=== PATIENT | female | born 1975 | race African-American/Black ===

== ENCOUNTER 2019-04-08 00:13 | Emergency (ER) | payer MEDICAID ==
[~2019-04-08] VITALS: Ht 162.6 cm; Wt 88.5 kg
--- NOTE | 2019-04-08 00:15 | NUR ---
ED Nurse Note: Pt came from home s/p breast implant on 04/01. 04/08 at 2039 pt expreirenced pain and swelling on LT breast. 07/11 pain. ao4. nad. vss
--- NOTE | 2019-04-08 00:24 | NUR ---
Dr.Robert Bey(plastic surgeon) at bedside.
[2019-04-08] MEDS ORDERED: HYDROmorphone 1mg/ml Carpuject IVP ONE ×3 (00:45→03:30)
--- NOTE | 2019-04-08 00:45 | NUR ---
ED Nurse Note: iv access established. blood collected; sent down to lab.
[2019-04-08 00:59] LABS: BASOPHILS % (AUTO) 0.7 % (0.0-2.0); EOSINOPHILS % (AUTO) 0.6 % (0.0-3.0); HEMATOCRIT 34.9 % (37.0-47.0); HEMOGLOBIN 11.2 G/DL (12.0-16.0); LYMPHOCYTES % (AUTO) 24.6 % (20.0-45.0); MEAN CORPUSCULAR VOLUME 88 FL (80-99); MONOCYTES % (AUTO) 6.3 % (1.0-10.0); NEUTROPHILS % (AUTO) 67.8 % (45.0-75.0); PLATELET COUNT 406 K/UL (150-450); RED BLOOD COUNT 3.94 M/UL (4.20-5.40); RED CELL DISTRIBUTION WIDTH 11.7 % (11.6-14.8); WHITE BLOOD COUNT 11.2 K/UL (4.8-10.8)
[2019-04-08 01:00] VITALS: BP 120/81
--- NOTE | 2019-04-08 01:00 | NUR ---
ED Nurse Note: urine collected; sent down to lab
[2019-04-08 01:14] LABS: ANION GAP 11 mmol/L (5-15); BLOOD UREA NITROGEN 14 mg/dL (7-18); CARBON DIOXIDE 27 MMOL/L (21-32); CHLORIDE 101 MMOL/L (98-107); CREATININE 0.9 MG/DL (0.55-1.30); POTASSIUM 3.7 MMOL/L (3.5-5.1); SODIUM 139 MMOL/L (136-145)
--- NOTE | 2019-04-08 01:36 | NUR ---
Admission cancelled by Dr. Bey, nursing hatch supervisor and registration notified, patient to follow up with Sotero Zambrano in the office in AM.Meanwhile labs are still pending and may be necessary to repeat labs.
[2019-04-08 01:37] LABS: ALANINE AMINOTRANSFERASE 19 U/L (12-78); ALBUMIN 3.8 G/DL (3.4-5.0); ALBUMIN/GLOBULIN RATIO 1.1 (1.0-2.7); ALKALINE PHOSPHATASE 69 U/L (46-116); ASPARTATE AMINO TRANSFERASE 16 U/L (15-37); BILIRUBIN,TOTAL 0.2 MG/DL (0.2-1.0); CKMB 0.5 NG/ML (0.0-3.6); CREATINE KINASE 60 U/L (26-308)
--- NOTE | 2019-04-08 01:55 | Emergency Room Report ---
History of Present Illness General Chief Complaint: Pain Source: Patient Present Illness HPI This is a 43-year-old female with history of high blood pressure. She presents with chief complaint of chest pain. She had recent breast augmentation 10 days ago. She had an argument and was yelling . Right afterwards she developed chest pain. She also has swelling to the left breast area. She text a picture to her plastic surgeon Dr. Bey. He told her to come to the ER evaluation. Pain is 10 out of 10. Radiating to her left arm. No shortness of breath. No exertional component. No diaphoresis. Worse with palpation. Worse with lying flat. Onset was acute after her argument. Pt did say that she has been more active today with using her arms more. No trauma. Allergies: Coded Allergies: No Known Allergies (Unverified , 04/08/19) Patient History Past Medical History: see triage record, old chart reviewed Past Surgical History: other Pertinent Family History: none Social History: Denies: smoking Last Menstrual Period: IUD Now: No Immunizations: other Reviewed Nursing Documentation: PMH: Agreed; PSxH: Agreed Nursing Documentation-PMH Hx Cardiac Problems: Yes Review of Systems Eye: Denies: eye pain, blurred vision ENT: Denies: ear pain, nose congestion, throat swelling Respiratory: Denies: cough, shortness of breath Cardiovascular: Reports: chest pain; Denies: palpitations Gastrointestinal: Denies: abdominal pain, diarrhea, nausea, vomiting Musculoskeletal: Denies: back pain, joint pain Skin: Denies: rash Neurological: Denies: headache, numbness Endocrine: Denies: increased thirst, increased urine Hematologic/Lymphatic: Denies: easy bruising All Other Systems: negative except mentioned in HPI Physical Exam Vital Signs Date Time Temp Pulse Resp B/P (MAP) Pulse Ox O2 Delivery O2 Flow Rate FiO2 04/08/19 00:17 98.2 93 18 120/81 (94) 96 Room Air Vitals normal Sp02 EP Interpretation: reviewed, normal General Appearance: well appearing, no apparent distress, alert Head: normocephalic, atraumatic Eyes: bilateral eye PERRL, bilateral eye EOMI ENT: hearing grossly normal, normal pharynx Neck: full range of motion, supple, no meningismus Respiratory: lungs clear, normal breath sounds, other - Left chest: She has significant hematoma to the chest wall area. Right chest wall is soft. Cardiovascular #1: regular rate, rhythm, no murmur Gastrointestinal: normal bowel sounds, non tender, no mass, no organomegaly, no bruit, non-distended Musculoskeletal: back normal, gait/station normal, normal range of motion Psychiatric: mood/affect normal Medical Decision Making Diagnostic Impression: Primary Impression: Chest pain Qualified Codes: R07.9 - Chest pain, unspecified Additional Impression: Chest wall hematoma Qualified Codes: S20.212A - Contusion of left front wall of thorax, initial encounter ER Course Patient presents with chest pain. Is probably secondary to her acute onset of hematoma. This probably secondary to bleeding blood vessel. This probably occurred after she was slamming the door area no evidence of ACS, PE, dissection. Dr. Bey came to the ER to evaluate the patient. Initially he wants to take her to the OR for evacuation of hematoma. Patient was concerned about the cost and insurance luna. She wanted to do it in the office if possible. He discussed the case with her and myself. He will see her in the office at 630. She will be ruled out with 2 sets of troponin. If negative will discharge her. Pain is better control. EKG Diagnostic Results Rate: normal Rhythm: NSR ST Segments: no acute changes Rhythm Strip Diag. Results EP Interpretation: yes Rate: 83 Rhythm: NSR, no PVC's, no ectopy Chest X-Ray Diagnostic Results Chest X-Ray Diagnostic Results : Chest X-Ray Ordered: Yes # of Views/Limited/Complete: 1 View Indication: Chest Pain EP Interpretation: Yes Interpretation: no consolidation, no effusion, no pneumothorax Impression: No acute disease Electronically Signed by: Leroy Schultz MD Last Vital Signs Date Time Temp Pulse Resp B/P (MAP) Pulse Ox O2 Delivery O2 Flow Rate FiO2 04/08/19 01:08 98.3 04/08/19 01:00 89 18 120/81 96 Room Air Status: improved Disposition: HOME, SELF-CARE Condition: Stable Referrals: NON PHYSICIAN (PCP) Additional Instructions: Follow-up at Dr. Bey's office today at 630 a.m. Return if symptoms worsen. Leroy Schultz MD Apr 08, 2019 01:55
--- NOTE | 2019-04-08 02:32 | NUR ---
ED Nurse Note: pt resting comfortably. pain persists. pt states pain is bearable and does not need pain medication. ao4. nad. vss. pt aware of plan of care. will repeat troponin at 0400
--- NOTE | 2019-04-08 03:30 | NUR ---
ED Nurse Note: patient reports pain is getting unbearable. order received from edmundo. medicated patient. tolerating well. ao4. nad. vss.
[2019-04-08 03:32] VITALS: BP 113/70
--- NOTE | 2019-04-08 04:00 | NUR ---
ED Nurse Note: repeat troponin drawn; sent down to lab.
[2019-04-08 05:26] VITALS: BP 113/70
--- NOTE | 2019-04-08 05:27 | NUR ---
ER DISCHARGE NOTE: Patient is cleared to be discharged per ERMD, pt is aox4, on room air, with stable vital signs. pt was given dc and prescription instructions, pt was able to verbalize understanding, pt id band and iv site removed without complications. pt is able to ambulate with steady gait. pt took all belongings.
--- NOTE | 2019-04-08 11:51 | Diagnostic Imaging Report ---
Indication: Chest pain Technique: One view of the chest Comparison: None Findings: Patient's chin obscures the upper mediastinum. No definite acute infiltrates, effusions, or congestion. The heart size is normal. Impression: No definite acute process
--- NOTE | 2019-04-09 19:15 | Consultation ---
DATE OF CONSULTATION: 04/08/2019 PLASTIC SURGERY CONSULTATION CHIEF COMPLAINT: Left chest pain, status post mastopexy augmentation. HISTORY OF PRESENT ILLNESS: The patient is a 43-year-old female with a past medical history of hypertension that had undergone a mastopexy augmentation procedure 10 days prior. The patient's surgery went well and she had an uneventful postoperative course until the sudden onset of left-sided chest pain earlier this evening. The patient reports that she had closed the trunk of her car just prior to developing some swelling of the left breast, and chest pain which extended down her left arm. The patient reports that the chest pain did not resolve and after became more uncomfortable, at which point the patient decided to go to the emergency room for evaluation. The patient presented to [facility] and was evaluated by the emergency room physician. The patient had noticeable swelling of the left breast, but a full work-up was performed to rule out any other causes of chest discomfort. An EKG, chest x-ray, and blood work were performed. Plastic surgery was present to further evaluate the left post-operative breast swelling. PAST MEDICAL HISTORY: Includes high blood pressure and reflux. PAST SURGICAL HISTORY: Includes x2, abdominoplasty, liposuction with fat transfer in 2014, and mastopexy augmentation in March 2019. MEDICATIONS: Include omeprazole, hydrochlorothiazide, amlodipine, and Lopressor. ALLERGIES: None. FAMILY HISTORY: Diabetes, high blood pressure, and heart disease. SOCIAL HISTORY: Denies cigarettes. Reports occasional alcohol use. Denies recreational drug use. PHYSICAL EXAMINATION: VITAL SIGNS: Afebrile. Vital signs stable. Temperature 98.2, blood pressure 120/81, pulse 89, respiratory rate 18, and O2 saturation 96% on room air. GENERAL: In no apparent distress. Alert, awake, and oriented x3. CHEST: Examination of the patient's chest revealed bilateral breast incisions to be intact with Steri-Strips in place. There is noted to be enlargement of the left breast compared to the right side. There was minimal bruising noted on the left breast. No cellulitis or signs of infection. LABORATORY DATA: White count 11.2, hematocrit 34.9, and platelet count 406,000. PT 10.4, INR 1.0, and PTT 25. Troponin 0.18. INR 0.018 and 0.014. IMAGING: Chest x-ray noncontributory. EKG negative. ASSESSMENT AND PLAN: A 43-year-old female 10 days status post mastopexy augmentation with acute onset of left breast swelling, and chest pain extending into the left arm. The patient was noted to have enlargement of the left breast compared to the right side suggestive of possible hematoma formation. The patient will be to be ruled out for any other possible causes of the chest pain. Once cleared, the patient was informed that she would benefit from returning to the operating room for evacuation of left breast hematoma. Brent Bey M.D. DR: GABO JOB#: [id number] CC: ADRIAN
--- NOTE | 2019-04-12 16:09 | Cardiology Report ---
APPROVED REPORT EKG Measurement Heart [id number] NE 138P-2 [id number] Sinus rhythm with occasional premature ventricular complexes Possible Anterior infarct, age undetermined Abnormal ECG
== END 2019-04-08 05:27 | disposition home or self-care (01) ==
LOC: EMR 00:22 → CANBEDREQ 01:35 → EMR 05:27
DX: S20.212A Contusion of left front wall of thorax, initial encounter (principal); I10 Essential (primary) hypertension; X58.XXXA Exposure to other specified factors, initial encounter; Y92.9 Unspecified place or not applicable
CPT/HCPCS: 36415; 71045; 80053; 81025; 82550; 82553; 84484; 85025; 85610; 85730; 93005; 96361; 96374; 96375; 96376; 99284; J1170; J2405